=== PATIENT | female | born 1975 | race Caucasian/White ===

== ENCOUNTER 2020-09-22 00:22 | Observation (INO) ==
[2020-09-22 01:35] LABS: Bilirubin,Urine Negative (Negative); Blood,Urine Negative (Negative); Clarity,Urine Clear (Clear); Color,Urine Light-Yellow (Yellow); Glucose,Urine (UA) Normal (Normal); Ketones,Urine Negative (Negative); Leukocyte Esterase,Urine Negative (Negative); Nitrite,Urine Negative (Negative); PH,Urine 6.5 pH Units (5.0-8.0); Protein,Urine Trace mg/dL (Neg-Trace); Specific Gravity,Urine 1.011 (1.010-1.025); Urobilinogen,Urine Normal (Normal)
[2020-09-22 01:38] LABS: Basophils # 0.1 K/mcL (0.0-0.2); Basophils % 0.5 %; Eosinophils # 0.2 K/mcL (0.0-0.6); Hematocrit 44.2 % (35.3-44.9); Hemoglobin 14.2 g/dL (11.5-15.4); Immature Granulocytes % 0.4 % (0-4); Lymphocytes # 4.1 K/mcL (0.6-4.6); Lymphocytes % 34.6 %; Mean Corpuscular HGB Conc 32.1 g/dL (31.6-35.5); Mean Corpuscular Hemoglobin 31.3 pg (28.0-33.3); Mean Corpuscular Volume 97.6 fL (83.0-100.0); Mean Platelet Volume 10.1 fL (9.4-12.4); Monocytes # 0.9 K/mcL (0.0-1.3); Monocytes % 7.2 %; Neutrophils # 6.6 K/mcL (1.6-8.9); Platelet Count 268 K/mcL (140-400); Red Blood Count 4.53 M/mcL (3.82-4.97); Red Cell Distribution Width 12.1 % (11.5-14.5); Segmented Neutrophils % 55.3 %; White Blood Count 11.9 K/mcL (4.3-11.1)
[2020-09-22 01:57] LABS: BUN/Creatinine Ratio 18 (6-26); Blood Urea Nitrogen 13 mg/dL (6-20); Calcium 9.3 mg/dL (8.6-10.3); Carbon Dioxide 25 mEq/L (23-29); Chloride 111 mEq/L (98-107); Glucose 86 mg/dL (70-105); Osmolality,Calculated 293 (280-300); Potassium 3.8 mEq/L (3.5-5.1); Sodium 142 mEq/L (136-145); eGFR For African Americans > 60 (> 60); eGFR For Non-African Americans > 60 (> 60)
[2020-09-22 05:50] LABS: Amphetamine Screen,Urine Negative ng/mL (Cutoff=1000); Barbiturate Screen,Urine Negative ng/mL (Cutoff=200); Benzodiazepines Screen,Urine Negative ng/mL (Cutoff=200); Cannabinoid Screen,Urine Positive ng/mL (Cutoff = 50); Cocaine Screen,Urine Negative ng/mL (Cutoff= 300); Opiate Screen,Urine Negative ng/mL (Cutoff=300); Phencyclidine Screen,Urine Negative ng/mL (Cutoff=25)
[2020-09-22] MEDS ORDERED: Aspirin 325 MG TABLET PO ONE (07:14)
[2020-09-22] MEDS ORDERED: Perflutren Lipid Microsphere 1.3 ML in 0.9 % Sodium Chloride 8.7 ML IVP PRN (07:14)
[2020-09-22 08:14] LABS: Chol/HDL Ratio 3.9 (0-4.9); Estimated Average Glucose 114 mg/dl; Hemoglobin A1C 5.6 %
[2020-09-22] MEDS ORDERED: Nicotine 21 MG PATCH.TD24 TD SCH (12:30)
[2020-09-22] MEDS ORDERED: Gabapentin 300 MG CAPSULE PO SCH (15:00)
[2020-09-22] MEDS ORDERED: *HR* Buprenorphine HCl 8 MG TAB.SUBL SL SCH (18:45)
[2020-09-22] MEDS: *HR* Buprenorphine HCl 8 MG TAB.SUBL SL SCH ×2 (19:21→19:27)
[2020-09-22] MEDS: Apixaban 5 MG TABLET PO SCH (20:45)
[2020-09-22] MEDS ORDERED: Topiramate 100 MG TABLET PO SCH (21:00)
[2020-09-22] MEDS ORDERED: Gabapentin 400 MG CAPSULE PO SCH (21:00)
[2020-09-23] MEDS: Apixaban 5 MG TABLET PO SCH (07:57)
[2020-09-23] MEDS ORDERED: Gabapentin 300 MG CAPSULE PO SCH (08:00)
[2020-09-23] MEDS ORDERED: Loratadine 10 MG TABLET PO SCH (09:00)
[2020-09-23 14:10] VITALS: BP 116/81
== END 2020-09-23 15:27 | disposition home or self-care (01) ==
LOC: EMEROOARM 00:22 → 3ANU 00:22
PROVIDERS: ADMIT Internal Medicine; ATTEND Internal Medicine